=== PATIENT | male | born 2000 ===

== ENCOUNTER 2020-02-12 03:21 | Emergency (ER) | payer SELFPAY ==
[~2020-02-12] VITALS: Ht 177.8 cm; Wt 77.0 kg
[2020-02-12 03:25] VITALS: BP 152/78
--- NOTE | 2020-02-12 04:02 | NUR ---
Pt ETOH. Pt cooperative at this time. Sitter at bedside for pt safety. vss.
--- NOTE | 2020-02-12 04:25 | NUR ---
RN informed that pt eloped. PA notified. Pt reported sprinting out of ER.
== END 2020-02-12 04:28 ==
LOC: ED 04:00
DX: G31.2 Degeneration of nervous system due to alcohol (principal); F10.120 Alcohol abuse with intoxication, uncomplicated; Y90.9 Presence of alcohol in blood, level not specified
CPT/HCPCS: 99283